=== PATIENT | female | born 1985 | race American Indian/Alaskan Native ===

== ENCOUNTER 2016-10-07 01:38 | Emergency (ER) | payer SELFPAY ==
[2016-10-07 02:18] LABS: Hematocrit 34.5 % (30.3-42.9); Mean Corpuscular HGB Conc 32 % (30-34); Mean Corpuscular Volume 81 fl (79-97); Platelet Count 258 K/mm3 (140-440); Red Blood Count 4.25 M/mm3 (3.65-5.03); Red Cell Distribution Width 15.1 % (13.2-15.2); White Blood Count 6.6 K/mm3 (4.5-11.0)
[2016-10-07 02:35] LABS: Alanine Aminotransferase 15 units/L (7-56); Albumin 3.8 g/dL (3.9-5); Alkaline Phosphatase 70 units/L (35-129); Anion Gap 11 mmol/L; Bilirubin,Total < 0.20 mg/dL (0.1-1.2); Blood Urea Nitrogen 10 mg/dL (7-17); Calcium 8.5 mg/dL (8.4-10.2); Carbon Dioxide 27 mmol/L (22-30); Chloride 100.9 mmol/L (98-107); Glucose 111 mg/dL (65-100); Lipase 30 units/L (13-60); Potassium 3.5 mmol/L (3.6-5.0); Sodium 135 mmol/L (137-145); Total Protein 7.8 g/dL (6.3-8.2)
[2016-10-07 02:51] LABS: Mean Corpuscular Hemoglobin 26 pg (28-32)
[2016-10-07 03:02] LABS: Bilirubin,Urine NEG (Negative); Blood,Urine NEG (Negative); Ketones,Urine NEG (Negative); Leukocyte Esterase,Urine NEG (Negative); Mucus,Urine FEW /HPF; Nitrite,Urine NEG (Negative); Protein,Urine <15 mg/dL mg/dL (Negative); Urobilinogen,Urine < 2.0 mg/dL (<2.0)
[2016-10-07 06:48] LABS: Basophils % (Manual) 0 % (0.0-1.8); Blastocytes % (Manual) 0 %
[2016-10-07 06:49] LABS: Anisocytosis 1+; Hypochromasia 2+
[2016-10-07 06:50] LABS: Diff Status Complete; Large Platelets Few
[2016-10-07] MEDS ORDERED: PERCOCET 5/325 PO ONE (08:34)
--- NOTE | 2016-10-07 08:35 | Emergency Department Report ---
HPI - General Chief Complaint: Abdominal Pain Time Seen by Provider: 10/07/16 08:29 - HPI HPI: This is a 31-year-old Afro-[place] female who presents to the emergency department from home, taking an uber in to be seen, with complaint of a one-day history of left lower quadrant abdominal and/or pelvic discomfort. She denies any vaginal bleeding, vaginal discharge, dysuria, fever, nausea, vomiting, back pain. She took a tramadol for her discomfort last night without any relief. She denies any past medical history. She says that she felt this pain one time about one month ago but ignored it and it eventually went away. Since it began yesterday at his been constant. There are no known aggravating or alleviating factors. No recent travel or sick contacts at home. She does not currently have any primary care or MANAGER QUANTITATIVE physicians. ED Past Medical Hx - Past Medical History Hx Headaches / Migraines: Yes (MIGRAINES) - Surgical History Past Surgical History?: Yes Hx Cholecystectomy: Yes - Social History Smoking Status: Never Smoker Substance Use Type: None - Medications Home Medications: Home Medications Medication Instructions Recorded Confirmed Last Taken Type HYDROcodone/APAP 10-325 [[place] 1 each PO Q6HR PRN #16 tablet 09/18/13 11/10/13 10/20/13 Rx 10/325] oxyCODONE /ACETAMINOPHEN [Percocet 1 tab PO Q6HR PRN #30 tablet 11/10/13 Unknown Rx 5/325] Ibuprofen [Motrin] 800 mg PO Q8HR PRN #15 tablet 02/08/15 Unknown Rx Sulfamethoxazole/Trimethoprim 1 each PO BID #10 tablet 02/08/15 Unknown Rx [Bactrim DS TAB] ED Review of Systems ROS: Stated complaint: LOWER ABD PAIN Other details as noted in HPI Comment: All other systems reviewed and negative Constitutional: denies: chills, fever Eyes: denies: eye pain, eye discharge, vision change ENT: denies: ear pain, throat pain Respiratory: denies: cough, shortness of breath, wheezing Cardiovascular: denies: chest pain, palpitations Gastrointestinal: abdominal pain (left lower quadrant abdominal/pelvic discomfort). denies: vomiting Genitourinary: denies: dysuria, hematuria, discharge Musculoskeletal: denies: back pain, joint swelling, arthralgia Skin: denies: rash, lesions Neurological: denies: headache, weakness, paresthesias Physical Exam - Physical Exam Vital Signs: Vital Signs 10/07/16 10/07/16 01:50 05:44 Temperature 98.5 F Pulse Rate 89 81 Respiratory 16 14 Rate Blood Pressure 135/99 159/102 O2 Sat by Pulse 100 100 Oximetry Physical Exam: GENERAL: The patient is well-developed well-nourished. HEENT: Normocephalic. Atraumatic. Extraocular motions are intact. Patient has moist mucous membranes. Pupils equal reactive to light bilaterally. NECK: Supple. Trachea is midline. CHEST/LUNGS: Clear to auscultation. There is no respiratory distress noted. HEART/CARDIOVASCULAR: Regular. There is no tachycardia. There is no gallop rub or murmur. ABDOMEN: Abdomen is soft. There is tenderness to palpation to the left lower quadrant of the abdomen that is more towards the pelvis. No guarding or rebound tenderness. No peritoneal signs. Patient has normal bowel sounds. There is no abdominal distention. SKIN: Skin is warm and dry. NEURO: The patient is awake, alert, and oriented. The patient is cooperative. The patient has no focal neurologic deficits. The patient has normal speech. MUSCULOSKELETAL: There is no tenderness or deformity. There is no limitation range of motion. There is no evidence of acute injury. ED Course Vital Signs 10/07/16 10/07/16 01:50 05:44 Temperature 98.5 F Pulse Rate 89 81 Respiratory 16 14 Rate Blood Pressure 135/99 159/102 O2 Sat by Pulse 100 100 Oximetry ED Medical Decision Making - Lab Data Result diagrams: 10/07/16 02:00 10/07/16 02:00 - Radiology Data Radiology results: report reviewed, image reviewed interpreted by me: Abdominal x-ray shows nonspecific nonobstructive bowel gas. TRANSABDOMINAL AND TRANSVAGINAL PELVIC ULTRASOUND: 10/07/16 01:38:00 CLINICAL: Left lower quadrant pain. TECHNIQUE: Real-time transabdominal and transvaginal imaging was performed. Dawn scale, color flow Doppler imaging and velocity spectral waveform analysis of the ovaries (duplex imaging) were employed. FINDINGS: Transabdominal and transvaginal pelvic ultrasound demonstrated a normal uterus measuring 9.5 x 5.3 x 5.5 cm. Normal uterine contour and echogenicity.The endometrium is mildly thickened and measures 10.6 mm AP thickness. A tiny bit of fluid in the uterine cavity. Normal right ovary. The right ovary measures 3.4 x 2.6 x 3.7cm. 2.1 cm cyst of the left ovary. The left ovary measures 3.0 x 2.3 x 2.6cm. Both ovaries demonstrated normal blood flow with normal spectral waveforms. No adnexal mass. No free fluid. Normal urinary bladder. IMPRESSION: Normal uterus and ovaries with a 2.1 cm left corpus luteum cyst. No evidence of ovarian torsion. - Medical Decision Making 31-year-old female presents to the emergency department with complaint of left lower abdominal and/or pelvic discomfort since last night. However it was much more intense/severe last night and has improved since. There is no vaginal discharge or bleeding, back pain, nausea, vomiting or fever. The patient's labs are unremarkable including no leukocytosis. Urinalysis does not show any urinary tract infection, hematuria and the patient is not . Abdominal x -ray shows nonobstructive nonspecific bowel gas. The foreign body seen is from a previous procedure the patient had and not a IUD. Transvaginal/pelvic ultrasound did not show any torsion or any significant abnormalities as the cause of the patient's discomfort. Vital signs stable including being afebrile. 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 She will return to the ER with any worsening of her symptoms or any acute distress. Since the patient's labs are unremarkable and the patient is feeling improved, I did not feel that CT imaging was necessary at this time. However if the pain worsens or she has any further concerns she will return for reevaluation and possible CT imaging at that time. - Differential Diagnosis fibroids, ovarian cysts, torsion, , UTI Critical Care Time: No Critical care attestation.: If time is entered above; I have spent that time in minutes in the direct care of this critically ill patient, excluding procedure time. ED Disposition Clinical Impression: Hypertension Qualifiers: Hypertension type: essential hypertension Qualified Code(s): I10 - Essential ( primary) hypertension Abdominal pain Qualifiers: Abdominal location: left lower quadrant Qualified Code(s): R10.32 - Left lower quadrant pain Disposition: - TO HOME OR SELFCARE Is pt being admited?: No Condition: Stable Instructions: Abdominal Pain (ED), Hypertension (ED) Additional Instructions: Please follow-up with a primary care physician and an MANAGER QUANTITATIVE. Return to the emergency department with any worsening of your symptoms or any acute distress. Referrals: PRIMARY CAREMD [Primary Care Provider] - 3-5 Days GORDO STARKEY MD [Staff Physician] - 3-5 Days [facility] [Outside] - 3-5 Days [facility] [Provider Group] - 3-5 Days [facility] [Provider Group] - 3-5 Days Time of Disposition: 10:28
--- NOTE | 2016-10-07 09:34 | Ultrasound Report ---
TRANSABDOMINAL AND TRANSVAGINAL PELVIC ULTRASOUND: 10/07/16 01:38:00 CLINICAL: Left lower quadrant pain. TECHNIQUE: Real-time transabdominal and transvaginal imaging was performed. Dawn scale, color flow Doppler imaging and velocity spectral waveform analysis of the ovaries (duplex imaging) were employed. FINDINGS: Transabdominal and transvaginal pelvic ultrasound demonstrated a normal uterus measuring 9.5 x 5.3 x 5.5 cm. Normal uterine contour and echogenicity.The endometrium is mildly thickened and measures 10.6 mm AP thickness. A tiny bit of fluid in the uterine cavity. Normal right ovary. The right ovary measures 3.4 x 2.6 x 3.7cm. 2.1 cm cyst of the left ovary. The left ovary measures 3.0 x 2.3 x 2.6cm. Both ovaries demonstrated normal blood flow with normal spectral waveforms. No adnexal mass. No free fluid. Normal urinary bladder. IMPRESSION: Normal uterus and ovaries with a 2.1 cm left corpus luteum cyst. No evidence of ovarian torsion.
[2016-10-07 11:11] VITALS: BP 144/84
--- NOTE | 2016-10-07 11:28 | XRay Report ---
ABDOMEN TWO VIEWS: 10/07/16 09:36:00 CLINICAL: Abdominal pain. COMPARISON: FINDINGS: Supine upright views demonstrate a normal bowel gas pattern. Surgical clips in the right upper quadrant. No distended bowel and no air-fluid levels. No mass or suspicious calcifications. Bilateral fallopian tube obliterating devices. The bones and soft tissues are normal. IMPRESSION: Negative abdomen.
== END 2016-10-07 10:50 | disposition home or self-care (01) ==
LOC: ED 01:38
DX: R10.32 Left lower quadrant pain (principal); I10 Essential (primary) hypertension; G43.909 Migraine, unspecified, not intractable, without status migrainosus
CPT/HCPCS: 36415; 74020; 76830; 80053; 81001; 81025; 83690; 85007; 85025; 93975; 99284

== ENCOUNTER 2018-05-11 15:02 | Emergency (ER) | payer BC ==
--- NOTE | 2018-05-11 15:40 | Emergency Department Report ---
ED Headache HPI - General Chief Complaint: Headache Stated Complaint: SEVERE HEADACHE Time Seen by Provider: 05/11/18 15:33 - History of Present Illness Allergies/Adverse Reactions: Allergies No Known Allergies Allergy (Verified 09/18/13 00:31) Home Medications: Ambulatory Orders Cyclobenzaprine [Flexeril 10 MG TAB] 10 mg PO TID PRN 07/11/17 Gabapentin 100 mg PO HS 07/11/17 Gabapentin [Neurontin] 300 mg PO Q8HR 07/11/17 Lidocaine [Lidocare] 1 each TP Q24H 07/11/17 Ondansetron [Zofran TAB] 4 mg PO Q8HR PRN 07/11/17 Pantoprazole [Protonix TAB] 40 mg PO QDAY 07/11/17 niMODipine [Nimodipine] 2 cap PO Q4H 07/11/17 oxyCODONE /ACETAMINOPHEN [Percocet 5/325 mg] 1 tab PO Q4HR PRN 07/11/17 ED Review of Systems ROS: Stated complaint: SEVERE HEADACHE Other details as noted in HPI ED Past Medical Hx - Past Medical History Hx Headaches / Migraines: Yes (MIGRAINES) Additional medical history: 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 brain compression. obstructive hydrocephalus - Surgical History Hx Cholecystectomy: Yes Additional Surgical History: subarachnoid intracraina hemorrhage - Social History Smoking Status: Never Smoker Substance Use Type: None - Medications Home Medications: Home Medications Medication Instructions Recorded Confirmed Last Taken Type Cyclobenzaprine [Flexeril 10 MG 10 mg PO TID PRN 07/11/17 07/11/17 Unknown History TAB] Gabapentin 100 mg PO HS 07/11/17 07/11/17 Unknown History Gabapentin [Neurontin] 300 mg PO Q8HR 07/11/17 07/11/17 07/11/17 History Lidocaine [Lidocare] 1 each TP Q24H 07/11/17 07/11/17 07/11/17 History Ondansetron [Zofran TAB] 4 mg PO Q8HR PRN 07/11/17 07/11/17 Unknown History Pantoprazole [Protonix TAB] 40 mg PO QDAY 07/11/17 07/11/17 Unknown History niMODipine [Nimodipine] 2 cap PO Q4H 07/11/17 07/11/17 07/11/17 History oxyCODONE /ACETAMINOPHEN [Percocet 1 tab PO Q4HR PRN 07/11/17 07/11/17 07/11/17 History 5/325 mg] ED Physical Exam - General Limitations: No Limitations ED Course Vital Signs 05/11/18 15:24 Temperature 97.9 F Pulse Rate 102 H Respiratory 18 Rate Blood Pressure 131/74 O2 Sat by Pulse 100 Oximetry Critical care attestation.: If time is entered above; I have spent that time in minutes in the direct care of this critically ill patient, excluding procedure time. ED Disposition Condition: Stable Referrals: JOANN BUCHANAN MD [Primary Care Provider] - 3-5 Days
--- NOTE | 2018-05-11 16:24 | Emergency Department Report ---
Anneliese Doc - Documentation Documentation: This is a 33-year-old female presented to the emergency room with 2 days history of headache on the left side. She says she went to urgent care and he sent her here. Patient has a history of subarachnoid bleed in July 2017 and she says she has been followed by neurologist. She said she had a MRI some time in the fall of 2018. Pain is located to the left temporal area and she said it feels deep and 7/10. No alleviating or exacerbating factors. Physical exam Head: Normocephalic, atraumatic Mini neurological test-GCS of 15, alert and oriented 3 Lungs: Clear to auscultation bilaterally, no rhonchi wheezes or rales A/P I spoke with Dr. Melchor regarding patient presentation and history and it was decided that patient needs to be seen on the main side. Labs and CT scan ordered and pending
[2018-05-11 16:35] LABS: Basophils # (Auto) 0.1 K/mm3 (0.0-0.1); Basophils % (Auto) 0.9 % (0.0-1.8); Eosinophils % (Auto) 0.3 % (0.0-4.3); Hematocrit 38.5 % (30.3-42.9); Hemoglobin 12.5 gm/dl (10.1-14.3); Lymphocytes # (Auto) 2.6 K/mm3 (1.2-5.4); Lymphocytes % (Auto) 38.9 % (13.4-35.0); Mean Corpuscular HGB Conc 32 % (30-34); Mean Corpuscular Volume 82 fl (79-97); Monocytes # (Auto) 0.5 K/mm3 (0.0-0.8); Monocytes % (Auto) 7.5 % (0.0-7.3); Platelet Count 307 K/mm3 (140-440); Red Blood Count 4.72 M/mm3 (3.65-5.03)
[2018-05-11 16:45] LABS: INR 0.86 (0.87-1.13); Partial Thromboplastin Time 27.3 Sec. (24.2-36.6)
[2018-05-11 16:51] LABS: Alanine Aminotransferase 15 units/L (7-56); BUN/Creatinine Ratio 23; Blood Urea Nitrogen 14 mg/dL (7-17); Hemolysis Index 5
--- NOTE | 2018-05-11 17:00 | Emergency Department Report ---
ED Headache HPI - General Chief Complaint: Headache Stated Complaint: SEVERE HEADACHE Time Seen by Provider: 05/11/18 16:53 Source: patient, family Exam Limitations: no limitations - History of Present Illness Initial Comments: Patient is a 33-year-old female that presents emergency room with complaints of headache. Patient states the headache started 3 days ago and is worsening. Patient states the pain is 10 out of 10. Patient states the pain is worsening. Patient states she has taken [id number] medications and things work. Patient states she has a history of migraines. Patient states she is having light and sound sensitivity. Patient is also complaining of sinus pressure and facial pain. Patient states one year ago she had a subarachnoid hemorrhage that was found on CT scan. Patient denies fever and chills. Patient denies neck stiffness. Patient denies nausea and vomiting. Timing/Duration: constant, increasing Quality: severe, constant, sharp, stabbing, throbbing Head Injury Location: frontal Recent Head Trauma: no recent headache/trauma, occasional headaches Modifying Factors: improves with: exposure to light, immobilization, movement, rest Associated Symptoms: facial pain. denies: confusion, fatigue, fever/chills, flushing, loss of consciousness, nausea/vomiting, nasal congestion, nasal drainage, numbness in legs/feet, rash, seizures, sinus infection, stiff neck, vision changes, weakness Allergies/Adverse Reactions: Allergies No Known Allergies Allergy (Verified 09/18/13 00:31) Home Medications: Ambulatory Orders Cyclobenzaprine [Flexeril 10 MG TAB] 10 mg PO TID PRN 07/11/17 Gabapentin 100 mg PO HS 07/11/17 Gabapentin [Neurontin] 300 mg PO Q8HR 07/11/17 Lidocaine [Lidocare] 1 each TP Q24H 07/11/17 Ondansetron [Zofran TAB] 4 mg PO Q8HR PRN 07/11/17 Pantoprazole [Protonix TAB] 40 mg PO QDAY 07/11/17 niMODipine [Nimodipine] 2 cap PO Q4H 07/11/17 oxyCODONE /ACETAMINOPHEN [Percocet 5/325 mg] 1 tab PO Q4HR PRN 07/11/17 Amoxicillin/Potassium Clav [Augmentin 875-125 Tablet] 1 each PO BID 10 Days #20 tablet 05/11/18 Ondansetron [Zofran Odt] 4 mg PO Q6HR PRN #15 tab.rapdis 05/11/18 methylPREDNISolone [Medrol] 4 mg PO DAILY 6 Days #1 tab.ds.pk 05/11/18 ED Review of Systems ROS: Stated complaint: SEVERE HEADACHE Other details as noted in HPI Constitutional: denies: chills, fever Eyes: denies: eye pain, eye discharge, vision change ENT: denies: ear pain, throat pain Respiratory: denies: cough, shortness of breath, wheezing Cardiovascular: denies: chest pain, palpitations Endocrine: no symptoms reported Gastrointestinal: denies: abdominal pain, nausea, diarrhea Genitourinary: denies: urgency, dysuria, discharge Musculoskeletal: denies: back pain, joint swelling, arthralgia Skin: denies: rash, lesions Neurological: headache. 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 brain compression. obstructive hydrocephalus - Surgical History Past Surgical History?: Yes Hx Cholecystectomy: Yes Additional Surgical History: subarachnoid intracraina hemorrhage - Family History Family history: no significant - Social History Smoking Status: Never Smoker Substance Use Type: None - Medications Home Medications: Home Medications Medication Instructions Recorded Confirmed Last Taken Type Cyclobenzaprine [Flexeril 10 MG 10 mg PO TID PRN 07/11/17 07/11/17 Unknown History TAB] Gabapentin 100 mg PO HS 07/11/17 07/11/17 Unknown History Gabapentin [Neurontin] 300 mg PO Q8HR 07/11/17 07/11/17 07/11/17 History Lidocaine [Lidocare] 1 each TP Q24H 07/11/17 07/11/17 07/11/17 History Ondansetron [Zofran TAB] 4 mg PO Q8HR PRN 07/11/17 07/11/17 Unknown History Pantoprazole [Protonix TAB] 40 mg PO QDAY 07/11/17 07/11/17 Unknown History niMODipine [Nimodipine] 2 cap PO Q4H 07/11/17 07/11/17 07/11/17 History oxyCODONE /ACETAMINOPHEN [Percocet 1 tab PO Q4HR PRN 07/11/17 07/11/17 07/11/17 History 5/325 mg] Amoxicillin/Potassium Clav 1 each PO BID 10 Days #20 tablet 05/11/18 Unknown Rx [Augmentin 875-125 Tablet] Ondansetron [Zofran Odt] 4 mg PO Q6HR PRN #15 tab.rapdis 05/11/18 Unknown Rx methylPREDNISolone [Medrol] 4 mg PO DAILY 6 Days #1 tab.ds.pk 05/11/18 Unknown Rx ED Physical Exam - General Limitations: No Limitations General appearance: alert, in no apparent distress - Head Head exam: Present: atraumatic, normocephalic - Eye Eye exam: Present: normal appearance, PERRL Pupils: Present: normal accommodation - ENT ENT exam: Present: mucous membranes moist, other (sinus inflammation noted. nasal turbinates inflamed) - Expanded ENT Exam Expanded TM/Canal exam: Bulging: Right TM, Left TM Mouth exam: Present: normal external inspection Throat exam: Positive: normal inspection - Neck Neck exam: Present: normal inspection, full ROM. Absent: tenderness, meni ngismus, lymphadenopathy, thyromegaly - Respiratory Respiratory exam: Present: normal lung sounds bilaterally. Absent: respiratory distress - Cardiovascular Cardiovascular Exam: Present: regular rate, normal rhythm. Absent: systolic murmur, diastolic murmur, rubs, gallop - GI/Abdominal GI/Abdominal exam: Present: soft, normal bowel sounds - Extremities Exam Extremities exam: Present: normal inspection - Back Exam Back exam: Present: normal inspection - Neurological Exam Neurological exam: Present: alert, oriented X3 - Psychiatric Psychiatric exam: Present: normal affect, normal mood - Skin Skin exam: Present: warm, dry, intact, normal color. Absent: rash ED Course Vital Signs 05/11/18 05/11/18 15:24 20:32 Temperature 97.9 F Pulse Rate 102 H 91 H Respiratory 18 18 Rate Blood Pressure 131/74 Blood Pressure 140/81 [Left] O2 Sat by Pulse 100 100 Oximetry - Reevaluation(s) Reevaluation #1: Patient states her headache has improved. 05/11/18 20:26 Discussed all results with patient. Patient states her headache is now at a 2 out of 10. Patient states she is feeling better. Patient denies nausea or vomiting. Discussed treatment plan with patient. Patient agrees with treatment plan. Patient stable at discharge. Patient discharged home. Patient given discharge instructions. Patient given follow-up instructions. Patient given return to ER instructions. Patient voiced understanding of all instructions. 05/11/18 21:53 ED Medical Decision Making - Lab Data Result diagrams: 05/11/18 16:24 05/11/18 16:24 - Radiology Data Radiology results: report reviewed FINAL REPORT PROCEDURE: CT HEAD/BRAIN WO CON TECHNIQUE: Computerized tomography of the head was performed without contrast material. HISTORY: headache with history of subarachnoid bleed COMPARISON: No prior studies are available for comparison. FINDINGS: There is no CT evidence of intracranial mass, hemorrhage, acute territorial infarction, or hydrocephalus. The intracranial arteries are symmetric in density. No acute fracture is seen. There is partial opacification of the right sphenoid sinus. The paranasal sinuses are otherwise aerated. IMPRESSION: No CT evidence of acute intracranial abnormality There is partial opacification of the right sphenoid sinus - Medical Decision Making Patient is a 33-year-old female that presents emergency room complaints of headache. Patient had CT done and was negative. Patient's pleural findings are consistent with sinus infection, migraine, UTI. Patient treated with steroids and antibiotics. Patient will be given a prescription for antibiotics a Medrol Dosepak and Zofran. Patient's labs unremarkable. Sedimentation rate was elevated most likely secondary to UTI and sinusitis. Patient instructed to follow up with neurologist in 2-3 days. - Differential Diagnosis migraine. Sinusitis. Headache. UTI. Critical care attestation.: If time is entered above; I have spent that time in minutes in the direct care of this critically ill patient, excluding procedure time. ED Disposition Clinical Impression: Chronic headache Qualifiers: Headache type: unspecified Intractability: not intractable Qualified Code(s): R51 - Headache Sinusitis Qualifiers: Sinusitis location: frontal Chronicity: acute Recurrence: non-recurrent Qualified Code(s): J01.10 - Acute frontal sinusitis, unspecified UTI (urinary tract infection) Qualifiers: Urinary tract infection type: acute cystitis Hematuria presence: with hematuria Qualified Code(s): N30.01 - Acute cystitis with hematuria Migraine Qualifiers: Migraine type: unspecified Status migrainosus presence: with status migrainosus Intractability: intractable Qualified Code(s): G43.911 - Migraine, unspecified, intractable, with status migrainosus Disposition: DC- TO HOME OR SELFCARE Is pt being admited?: No Does the pt Need Aspirin: No Condition: Stable Instructions: Urinary Tract Infection in Women (ED), Sinusitis (ED), Migraine Headache (ED), Acute Headache (ED) Additional Instructions: Patient increase water. Patient to rest. Patient to take Tylenol or ibuprofen when necessary for pain. Patient to follow-up with neurologist in 2-3 days. Patient to follow up with his primary care in 2-3 days. Patient to keep a headache log. Patient to return to ER if condition worsens Prescriptions: Amoxicillin/Potassium Clav [Augmentin 875-125 Tablet] 1 each PO BID 10 Days #20 tablet methylPREDNISolone [Medrol] 4 mg PO DAILY 6 Days #1 tab.ds.pk Ondansetron [Zofran Odt] 4 mg PO Q6HR PRN #15 tab.rapdis PRN Reason: Nausea And Vomiting Referrals: JOANN BUCHANAN MD [Primary Care Provider] - 2-3 Days Time of Disposition: 21:55
[2018-05-11 17:21] LABS: Bilirubin,Urine NEG (Negative); Blood,Urine LG (Negative); Color,Urine Yellow (Yellow); Mucus,Urine FEW /HPF; Protein,Urine <15 mg/dL mg/dL (Negative); Urobilinogen,Urine < 2.0 mg/dL (<2.0)
[2018-05-11 17:23] LABS: HCG Qualitative,Urine Negative (Negative)
--- NOTE | 2018-05-11 17:44 | Cat Scan Report ---
FINAL REPORT PROCEDURE: CT HEAD/BRAIN WO CON TECHNIQUE: Computerized tomography of the head was performed without contrast material. HISTORY: headache with history of subarachnoid bleed COMPARISON: No prior studies are available for comparison. FINDINGS: There is no CT evidence of intracranial mass, hemorrhage, acute territorial infarction, or hydrocepha heidy. The intracranial arteries are symmetric in density. No acute fracture is seen. There is partial opacification of the right sphenoid sinus. The paranasal sinuses are otherwise aerated. IMPRESSION: No CT evidence of acute intracranial abnormality There is partial opacification of the right sphenoid sinus
[2018-05-11] MEDS ORDERED: SOLU-Medrol IV ONE (17:48)
[2018-05-11] MEDS ORDERED: TORADOL IV ONE (20:26)
[2018-05-11] MEDS ORDERED: BENADRYL IV ONE (20:26)
[2018-05-11] MEDS ORDERED: ROCEPHIN/NS 1 GM/50 ML 1 GM/50 ML BAG IV ONE (20:54)
[2018-05-11 22:14] VITALS: BP 133/73
== END 2018-05-11 22:27 | disposition home or self-care (01) ==
LOC: ED 15:02
DX: G43.911 Migraine, unspecified, intractable, with status migrainosus (principal); N30.01 Acute cystitis with hematuria; J01.10 Acute frontal sinusitis, unspecified; Z90.49 Acquired absence of other specified parts of digestive tract
CPT/HCPCS: 36415; 70450; 80053; 81001; 81025; 85025; 85610; 85652; 85730; 96365; 96375; 99284; J0696; J1200; J1885; J2930

== ENCOUNTER 2019-04-19 07:48 | Emergency (ER) | payer BC, OTHER ==
[2019-04-19 07:51] VITALS: BP 135/89
--- NOTE | 2019-04-19 08:30 | XRay Report ---
CHEST 2 VIEWS INDICATION / CLINICAL INFORMATION: Chest Pain. COMPARISON: None available. FINDINGS: SUPPORT DEVICES: None. HEART / MEDIASTINUM: No significant abnormality. LUNGS / PLEURA: No significant pulmonary or pleural abnormality. No pneumothorax. ADDITIONAL FINDINGS: No significant additional findings. IMPRESSION: 1. No acute findings. Signer Name: Basia Omer MD Signed: 04/19/2019 8:26 AM Workstation Name: [id number]
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
[2019-04-19] MEDS ORDERED: HYDROcodone/ACETAMINOPHEN 5-325 MG TAB PO ONE (10:08)
[2019-04-19] MEDS ORDERED: IBUPROFEN 800 MG TAB PO ONE (10:08)
[2019-04-19] MEDS ORDERED: CYCLOBENZAPRINE 10 MG TAB PO ONE (10:08)
== END 2019-04-19 12:23 | disposition home or self-care (01) ==
LOC: ED 07:48
DX: S20.212A Contusion of left front wall of thorax, initial encounter (principal); G43.909 Migraine, unspecified, not intractable, without status migrainosus; F10.10 Alcohol abuse, uncomplicated; Z90.49 Acquired absence of other specified parts of digestive tract; Z79.899 Other long term (current) drug therapy; V49.49XA Driver injured in collision with other motor vehicles in traffic accident, initial encounter; Y93.89 Activity, other specified; Y92.410 Unspecified street and highway as the place of occurrence of the external cause; Y99.8 Other external cause status
CPT/HCPCS: 71046; 93005; 93010

== ENCOUNTER 2020-07-17 07:24 | Emergency (ER) | payer BC ==
[2020-07-17 07:42] VITALS: BP 154/84
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
[2020-07-17 09:18] LABS: HCG Qualitative,Urine Negative (Negative)
[2020-07-17 09:25] LABS: Bilirubin,Urine NEG (Negative); Blood,Urine NEG (Negative); Color,Urine Yellow (Yellow); Mucus,Urine FEW /HPF; Protein,Urine <15 mg/dL mg/dL (Negative); Urobilinogen,Urine < 2.0 mg/dL (<2.0)
--- NOTE | 2020-07-17 10:04 | XRay Report ---
LUMBAR SPINE 2 VIEWS INDICATION / CLINICAL INFORMATION: lumbar pain. COMPARISON: None available. FINDINGS: No significant skeletal abnormality. Alignment is normal. Signer Name: Kike Gonsales MD FACR Signed: 07/17/2020 9:59 AM Workstation Name: [id number]
== END 2020-07-17 10:38 | disposition home or self-care (01) ==
LOC: ED 07:24
DX: S39.012A Strain of muscle, fascia and tendon of lower back, initial encounter (principal); M54.40 Lumbago with sciatica, unspecified side; G43.909 Migraine, unspecified, not intractable, without status migrainosus; Z90.49 Acquired absence of other specified parts of digestive tract; Z98.890 Other specified postprocedural states; Z79.899 Other long term (current) drug therapy; X58.XXXA Exposure to other specified factors, initial encounter; Y93.89 Activity, other specified; Y92.89 Other specified places as the place of occurrence of the external cause; Y99.8 Other external cause status
CPT/HCPCS: 72100; 81001; 81025